=== PATIENT | male | born 2000 | race African-American/Black ===

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

== ENCOUNTER 2022-09-24 11:09 | Emergency (ER) | payer OTHER ==
[~2022-09-24] VITALS: Ht 185.4 cm; Wt 70.3 kg
[2022-09-24] MEDS ORDERED: CETIRIZINE HCL10 MG PO (11:48)
== END 2022-09-24 11:58 | disposition home or self-care (01) ==
LOC: FSED 11:14
DX: J02.9 Acute pharyngitis, unspecified (principal)
CPT/HCPCS: 83518; 87400; 99282

== ENCOUNTER 2023-05-01 15:56 | Emergency (ER) | payer SELFPAY ==
[~2023-05-01] VITALS: Ht 185.4 cm; Wt 75.8 kg
[~2023-05-01 15:56] MED LIST: CETIRIZINE HCL10 MG PO
[2023-05-01] MEDS ORDERED: IBUPROFEN200 MG PO (16:25)
[2023-05-01] MEDS ORDERED: DOXYCYCLINE HY100 MG PO (16:25)
[2023-05-01 16:35] VITALS: O2SAT 100
== END 2023-05-01 16:35 | disposition home or self-care (01) ==
LOC: FSED 16:01
DX: R30.0 Dysuria (principal); N34.1 Nonspecific urethritis
CPT/HCPCS: 81003; 99283